=== PATIENT | male | born 1965 | race Caucasian/White ===

== ENCOUNTER 2020-07-23 08:19 | Emergency (ER) | payer OTHER ==
[2020-07-23] MEDS ORDERED: NORMAL SALINE 1000 ML 1,000 ML IV ONE (10:14)
--- NOTE | 2020-07-23 10:50 | RADIOLOGY REPORT (SQ) ---
EXAM DESCRIPTION: CT HEAD WITHOUT IMAGES COMPLETED DATE/TIME: 07/23/2020 10:30 am REASON FOR STUDY: syncope COMPARISON: None. TECHNIQUE: Axial images acquired through the brain without intravenous contrast. Images reviewed wi th bone, brain and subdural windows. Additional sagittal and coronal reconstructions were generated. Images stored on PACS. All CT scanners at this facility use dose modulation, iterative reconstruction, and/or weight based d osing when appropriate to reduce radiation dose to as low as reasonably achievable (ALARA). [facility]: Dose Right [facility]: CareDose [facility]: Dose Right [facility]: Teradose 4D [facility]: [employer] RADIATION DOSE: CT Rad equipment meets quality standard of care and radiation dose reduction techniq ues were employed. CTDIvol: 53.2 mGy. DLP: 1044 mGy-cm. mGy. LIMITATIONS: None. FINDINGS: VENTRICLES: Normal size and contour. CEREBRUM: No masses. No hemorrhage. No midline shift. No evidence for acute infarction. Normal gra y/white matter differentiation. No areas of low density in the white matter. CEREBELLUM: No masses. No hemorrhage. No alteration of density. No evidence for acute infarction. EXTRAAXIAL SPACES: No fluid collections. No masses. ORBITS AND GLOBE: No intra- or extraconal masses. Normal contour of globe without masses. CALVARIUM: No fracture. PARANASAL SINUSES: Right mastoid effusion with some trabecular thinning inferiorly. Fluid within the right middle ear. Minimal right frontal and anterior ethmoid air cell mucosal thickening. Remainin g sinuses are clear. SOFT TISSUES: No mass or hematoma. OTHER: No other significant finding. IMPRESSION: 1. Fluid within the right middle ear. Right mastoid effusion with some trabecular thin nelda inferiorly. Recommend clinical correlation for evidence of mastoiditis. 2. No other evidence of acute intracranial process. EVIDENCE OF ACUTE STROKE: NO. COMMENT: Quality ID # [id number]: Final reports with documentation of one or more dose reduction techniques (e.g., Automated exposure control, adjustment of the mA and/or kV according to patient size, use of iterative reconstruction technique) TECHNICAL DOCUMENTATION: JOB ID: [id number] 2010 [employer]- All Rights Reserved Reading location - IP/workstation name: [email or web address]
--- NOTE | 2020-07-23 10:53 | RADIOLOGY REPORT (SQ) ---
EXAM DESCRIPTION: CT CERVICAL SPINE WITHOUT IMAGES COMPLETED DATE/TIME: 07/23/2020 10:30 am REASON FOR STUDY: neck pain/right sided COMPARISON: None. TECHNIQUE: Axial images acquired through the cervical spine without intravenous contrast. Images re viewed with lung, soft tissue and bone windows. Reconstructed coronal and sagittal MPR images review ed. Images stored on PACS. All CT scanners at this facility use dose modulation, iterative reconstruction, and/or weight based d osing when appropriate to reduce radiation dose to as low as reasonably achievable (ALARA). [facility]: Dose Right [facility]: CareDose [facility]: Dose Right [facility]: Teradose 4D [facility]: [employer] RADIATION DOSE: CT Rad equipment meets quality standard of care and radiation dose reduction techniq ues were employed. CTDIvol: 21.5 mGy. DLP: 458 mGy-cm. mGy. LIMITATIONS: None. FINDINGS: ALIGNMENT: Anatomic. MINERALIZATION: Normal. VERTEBRAL BODIES: No fractures or dislocation. DISCS: Multilevel disc height loss and endplate change greatest at C5-6 and C6-7. Posterior disc ost eophyte complex at C6-7 with mild osseous canal stenosis. FACETS, LATERAL MASSES, POSTERIOR ELEMENTS: No fractures. No dislocation. No acute findings. HARDWARE: None in the spine. VISUALIZED RIBS: No fractures. LUNG APICES AND SOFT TISSUES: No significant or acute findings. OTHER: Right mastoid effusion and fluid within the middle ear. Scattered vascular calcifications. IMPRESSION: 1. No evidence of acute bony abnormality of the cervical spine. 2. Degenerative disc changes greatest at C5-6 and C6-7. TECHNICAL DOCUMENTATION: JOB ID: [id number] Quality ID # [id number]: Final reports with documentation of one or more dose reduction techniques (e.g., Au tomated exposure control, adjustment of the mA and/or kV according to patient size, use of iterative reconstruction technique) 2010 [employer]- All Rights Reserved Reading location - IP/workstation name: [email or web address]
[2020-07-23 11:07] LABS: VENOUS BLOOD BASE EXCESS 0.5 mmol/L; VENOUS BLOOD PCO2 44.7 mmHg (35-63); VENOUS BLOOD PH 7.38 (7.30-7.42)
[2020-07-23 11:08] LABS: ABSOLUTE LYMPHOCYTES (AUTO) 1.1 10^3/uL (0.5-4.7); ABSOLUTE MONOCYTES (AUTO) 0.8 10^3/uL (0.1-1.4); ABSOLUTE NEUT (AUTO) 12.8 10^3/uL (1.7-8.2); BASOPHILS % (AUTO) 0.2 % (0-2); EOSINOPHILS % (AUTO) 0.1 % (0-6); HEMATOCRIT 43.1 % (37.9-51.0); HEMOGLOBIN 15.2 g/dL (13.5-17.0); LYMPHOCYTES % (AUTO) 7.8 % (13-45); MEAN CORPUSCULAR HEMOGLOBIN 29.7 pg (27.0-33.4); MEAN CORPUSCULAR HGB CONC 35.3 g/dL (32.0-36.0); MEAN CORPUSCULAR VOLUME 84 fl (80-97); MONOCYTES % (AUTO) 5.2 % (3-13); PLATELET COUNT 248 10^3/uL (150-450); RED BLOOD COUNT 5.12 10^6/uL (4.35-5.55); RED CELL DISTRIBUTION WIDTH 12.6 % (11.5-14.0); SEGMENTED NEUTROPHILS % (AUTO) 86.7 % (42-78); TOTAL CELLS COUNTED % (AUTO) 100 %; WHITE BLOOD COUNT 14.8 10^3/uL (4.0-10.5)
[2020-07-23 11:15] LABS: PROTHROMBIN TIME 12.4 SEC (11.4-15.4)
[2020-07-23 11:16] LABS: PARTIAL THROMBOPLASTIN TIME 26.8 SEC (23.5-35.8)
[2020-07-23 11:39] LABS: ALBUMIN 4.4 g/dL (3.5-5.0); ALKALINE PHOSPHATASE 73 U/L (38-126); ANION GAP 10 (5-19); ASPARTATE AMINO TRANSFERASE 23 U/L (17-59); BILIRUBIN,DIRECT 0.3 mg/dL (0.0-0.4); BILIRUBIN,TOTAL 0.5 mg/dL (0.2-1.3); BLOOD UREA NITROGEN 24 mg/dL (7-20); CALCIUM 9.5 mg/dL (8.4-10.2); CARBON DIOXIDE 25 mmol/L (22-30); CHLORIDE 105 mmol/L (98-107); CREATINE KINASE 157 U/L (55-170); GLUCOSE 145 mg/dL (75-110); POTASSIUM 4.6 mmol/L (3.6-5.0); TOTAL PROTEIN 7.3 g/dL (6.3-8.2)
[2020-07-23 11:49] LABS: ALCOHOL < 10 mg/dL (NONE DETECTED)
[2020-07-23 12:30] LABS: APPEARANCE,URINE CLEAR; BILIRUBIN,URINE NEGATIVE (NEGATIVE); COLOR,URINE YELLOW; GLUCOSE, URINE NEGATIVE (NEGATIVE); KETONES,URINE NEGATIVE (NEGATIVE); LEUKOCYTE ESTERASE,URINE NEGATIVE (NEGATIVE); NITRITE,URINE NEGATIVE (NEGATIVE); PROTEIN,URINE NEGATIVE (NEGATIVE); URINE SPECIFIC GRAVITY 1.011; UROBILINOGEN,URINE NEGATIVE mg/dL (<2.0)
[2020-07-23 12:45] LABS: URINE AMPHETAMINES SCREEN NEGATIVE; URINE BARBITURATES SCREEN NEGATIVE; URINE BENZODIAZEPINES SCREEN NEGATIVE; URINE COCAINE SCREEN NEGATIVE; URINE METHADONE SCREEN NEGATIVE; URINE PHENCYCLIDINE SCREEN NEGATIVE
[2020-07-23 12:49] LABS: URINE MARIJUANA (THC) SCREEN UNCONFIRMED POSITIVE
--- NOTE | 2020-07-23 13:01 | EKG REPORT ---
SEVERITY:- NORMAL ECG - SINUS RHYTHM : Confirmed by: Car Hansen MD 23-Jul-2020 13:00:47
[2020-07-23] MEDS ORDERED: KETOROLAC TROMETHAMINE INJ/PF 30 MG/1 ML SDV IV ONE (14:59)
--- NOTE | 2020-07-23 15:10 | ER Document Report ---
Entered by NAHED FUNK SCRIBE 07/23/20 1012 Acting as scribe for:CORRINA FISHER MD ED Syncope and Near Syncope - General Chief Complaint: Syncope Stated Complaint: SYNCOPAL EPISODE Mode of Arrival: Ambulatory Information source: Patient, Relative - Notes: This 55 year old male patient presents to the ED today via POV for evaluation of a witnessed syncopal episode that occurred prior to arrival. at bedside states that the patient tripped over an ottoman and fell on his right side x3 days ago and that when he noticed the bruise over his right buttock this morning, he had a anxiety attack followed by a syncopal episode. reports that the patient was sitting in a chair at that time because he felt the anxiety attack coming on. notes that the patient did not hit his head when he fell x3 days ago and has been acting appropriately since then except for complaining about increased maxillary sinus pressure and a headache. - Related Data Allergies/Adverse Reactions: No Known Allergies Allergy (Verified 07/23/20 08:59) Home Medications: lisinopril. pepcid. flonase. clonazapem Past Medical History - General Information source: Patient - Social History Smoking Status: Unknown if Ever Smoked Frequency of alcohol use: None Drug Abuse: None Lives with: Spouse/Significant other Family History: Reviewed & Not Pertinent Patient has suicidal ideation: No Patient has homicidal ideation: No - Past Medical History Cardiac Medical History: Reports: Hx Hypertension Psychiatric Medical History: Reports: Hx Anxiety Past Surgical History: Reports: Hx Myringotomy - tubes, bilateral Review of Systems - Review of Systems Constitutional: No symptoms reported EENT: See HPI, Sinus pressure Cardiovascular: See HPI, Syncope Respiratory: No symptoms reported Gastrointestinal: No symptoms reported Genitourinary: No symptoms reported Male Genitourinary: No symptoms reported Musculoskeletal: See HPI Skin: See HPI, Other - Ecchymosis, right buttock Hematologic/Lymphatic: No symptoms reported Neurological/Psychological: See HPI, Anxiety, Headaches -: Yes All other systems reviewed and negative Physical Exam - Vital signs Vitals: Temp Pulse Resp BP Pulse Ox 97.9 F 86 16 142/80 H 98 07/23/20 08:37 07/23/20 08:37 07/23/20 08:37 07/23/20 08:37 07/23/20 08:37 - General General appearance: Alert, Anxious In distress: None - HEENT Head: Normocephalic, Atraumatic Eyes: Normal Pupils: PERRL Ears: Other - Right posterior auricular tenderness to palpation Tympanic membrane: Other - Evidence of tympanic surgery - Respiratory Respiratory status: No respiratory distress Chest status: Nontender Breath sounds: Normal Chest palpation: Normal - Cardiovascular Rhythm: Regular Heart sounds: Normal auscultation Murmur: No Friction rub: No Gallop: None auscultated - Abdominal Inspection: Normal Distension: No distension Bowel sounds: Normal Tenderness: Nontender - Abdomen soft Organomegaly: No organomegaly - Back Back: Normal, Nontender - Extremities General upper extremity: Normal inspection General lower extremity: Normal inspection - Neurological Neuro grossly intact: Yes Orientation: AAOx4 Antonio Coma Scale Eye Opening: Spontaneous Antonio Coma Scale Verbal: Oriented [place] Coma Scale Motor: Obeys Commands Antonio Coma Scale Total: 15 - Psychological Associated symptoms: Anxious - Skin Skin Temperature: Warm Skin Moisture: Dry Skin Color: Normal Skin irregularity: other - Abrasion and ecchymosis over right iliac crest/buttock region Course - Re-evaluation Re-evalutation: 07/23/20 15:07 Vital signs stable patient resting comfortably walking in the room not showing any signs of distress. - Vital Signs Vital signs: Temp Pulse Resp BP Pulse Ox 97.9 F 86 20 134/82 H 100 07/23/20 08:37 07/23/20 08:37 07/23/20 14:00 07/23/20 14:00 07/23/20 14:00 - Laboratory Result Diagrams: 07/23/20 10:35 07/23/20 10:35 Laboratory results interpreted by me: 07/23/20 07/23/20 10:35 10:35 WBC 14.8 H Lymph % (Auto) 7.8 L Absolute Neuts (auto) 12.8 H Seg Neutrophils % 86.7 H BUN 24 H Glucose 145 H Laboratory shows elevated white blood cell count of 14.8 BUN 24 and glucose 145. Otherwise the troponin x2 is negative EKG does not show any acute process either. - Diagnostic Test Radiology reviewed: Image reviewed, Reports reviewed Radiology results interpreted by me: 07/23/20 15:[address] 07/23/20 10:13 IMPRESSION: 1. Fluid within the right middle ear. Right mastoid effusion with some trabecular thinning inferiorly. Recommend clinical correlation for evidence of mastoiditis. 2. No other evidence of acute intracranial process. EVIDENCE OF ACUTE STROKE: NO. Cervical Spine CT 07/23/20 10:14 IMPRESSION: 1. No evidence of acute bony abnormality of the cervical spine. 2. Degenerative disc changes greatest at C5-6 and C6-7. CT scan of head shows no acute process cervical spine CT no acute injury. Noted degenerative disc changes at C5-6 and C6-7. - EKG Interpretation by Me Additional EKG results interpreted by me: 07/23/20 15:09 Twelve-lead EKG shows a normal sinus rhythm rate of 83 DE QRS and QT intervals are within normal range no prolongation. Normal axis no acute ST-T wave changes. Discharge - Discharge Clinical Impression: Vasovagal syncope, Chronic serous otitis media, right ear, Mastoiditis of right side Condition: Stable Disposition: HOME, SELF-CARE Additional Instructions: Vasovagal Symptoms Your symptoms seem to be due to a fall in blood pressure, caused by the interaction of your nervous system with your circulatory system. This can result in abnormally slow pulse rate, faintness, abnormal sensations, low blood pressure, difficulty with vision, or fainting (syncope). Vasovagal symptoms ma y be brought on by emotional distress, pain, dehydration, bleeding, or medication effects. Often, no cause can be identified. Your exam has revealed no signs of a serious problem. Usually, no further tests are required. However, if further workup has been recommended it's important that you follow up as instructed. Should you feel lightheaded or "about to faint," you should sit or lie down as quickly as possible. The episode will usually pass. Recurring symptoms will require further evaluation to determine the cause. Call the physician if you develop severe prolonged dizziness, headache, chest pain, shortness of breath, or other new symptoms. As discussed follow-up with ear nose and throat doctor on Sunday. I understand your is already created an appointment for you for Sunday to see the ear nose and throat doctor. Recommend that you take Tylenol or ibuprofen if needed for pain. Antibiotics prescription has been sent to your pharmacy is [facility] in [facility]. Prescriptions: Amoxicillin/Potassium Clav [Augmentin [id number] Tablet] 1 tab PO BID #20 tab I personally performed the services described in the documentation, reviewed and edited the documentation which was dictated to the scribe in my presence, and it accurately records my words and actions.
[2020-07-23 15:39] VITALS: BP 138/79
== END 2020-07-23 15:38 | disposition home or self-care (01) ==
LOC: ER 08:19
DX: R55 Syncope and collapse (principal); H65.21 Chronic serous otitis media, right ear; H70.91 Unspecified mastoiditis, right ear; S30.0XXA Contusion of lower back and pelvis, initial encounter; S30.810A Abrasion of lower back and pelvis, initial encounter; W01.0XXA Fall on same level from slipping, tripping and stumbling without subsequent striking against object, initial encounter; M47.812 Spondylosis without myelopathy or radiculopathy, cervical region; R51.9 Headache, unspecified; F41.9 Anxiety disorder, unspecified; I10 Essential (primary) hypertension; Z79.899 Other long term (current) drug therapy
CPT/HCPCS: 93005; 99285; 96361; 96374; 36415; 80307 ×2; 82550; 85025; 85610; 85730; 80053; 81001; 84484; 82803; 70450; 72125; 93010; J1885; J7030